=== PATIENT | male | born 1955 | race Asian ===

== ENCOUNTER 2020-08-20 12:39 | Emergency (ER) | payer MEDICAID ==
[~2020-08-20] VITALS: Ht 167.6 cm; Wt 63.5 kg
[2020-08-20 12:40] VITALS: BP_SYST 161
[2020-08-20 13:03] LABS: BASOPHILS % (AUTO) 0.7 % (0.0-2.0); EOSINOPHILS # (AUTO) 0.1 K/uL (0.0-0.4); EOSINOPHILS % (AUTO) 0.9 % (0.0-4.0); HEMATOCRIT 46.4 % (36-54); HEMOGLOBIN 16.1 g/dL (14.0-18.0); LYMPHOCYTES # (AUTO) 1.8 K/uL (1.0-5.5); LYMPHOCYTES % (AUTO) 28.4 % (20.5-51.5); MEAN CORPUSCULAR HEMOGLOBIN 32 pg (27-31); MEAN CORPUSCULAR HGB CONC 35 % (32-36); MEAN CORPUSCULAR VOLUME 92 fL (79.0-98.0); MONOCYTES # (AUTO) 0.3 K/uL (0.0-1.0); MONOCYTES % (AUTO) 4.8 % (1.7-9.3); NEUTROPHILS # (AUTO) 4.1 K/uL (1.8-7.7); NEUTROPHILS % (AUTO) 65.2 % (40.0-70.0); PLATELET COUNT (AUTO) 218 K/uL (130-430); RED BLOOD CELL COUNT(AUTO) 5.06 MIL/uL (4.2-6.2); RED CELL DISTRIBUTION WIDTH 12.7 % (9.0-15.0); WHITE BLOOD COUNT (AUTO) 6.4 K/uL (4.8-10.8)
[2020-08-20 13:08] LABS: BILIRUBIN,URINE NEGATIVE (NEGATIVE); BLOOD, URINE NEGATIVE (NEGATIVE); GLUCOSE,URINE NEGATIVE (NEGATIVE); KETONES,URINE NEGATIVE (NEGATIVE); LEUKOCYTE ESTERASE ,URINE NEGATIVE (NEGATIVE); NITRITE, URINE NEGATIVE (NEGATIVE); PH,URINE 7.5 (5.0-8.0); PROTEIN URINE NEGATIVE (NEGATIVE); UROBILINOGEN,URINE 0.2 (0.2-1.0)
[2020-08-20 13:09] LABS: CLARITY/URINE CLEAR (CLEAR); COLOR,URINE YELLOW (YELLOW)
[2020-08-20 13:15] LABS: ANION GAP 11 (5-15); CHLORIDE 101 mmol/L (98-107); GLUCOSE 105 mg/dL (70-99); POTASSIUM 3.9 mmol/L (3.5-5.1); SODIUM SERUM 141 mmol/L (136-145); UREA NITROGEN, BLOOD 16 mg/dL (8-21)
[2020-08-20 13:20] LABS: BARBITURATE, URINE NEGATIVE (NEG <=200); BENZODIAZEPINE, URINE NEGATIVE (NEG <=150); CANNABINOID, URINE NEGATIVE (NEG <=50); COCAINE, URINE NEGATIVE (NEG <=150); METHAMPHETAMINES SCREEN,URINE NEGATIVE (NEG <=500); OPIATE, URINE NEGATIVE (NEG <=100); PHENCYCLIDINE SCREEN,URINE NEGATIVE (NEG <=25); UR TRICYCLIC ANTIDEPRESSANTS NEGATIVE (NEG <=300); URINE AMPHETAMINE NEGATIVE (NEG <=500); URINE METHADONE NEGATIVE (NEG <=200); URINE OXYCODONE SCREEN NEGATIVE (NEG <=100); URINE PROPOXYPHENE SCREEN NEGATIVE (NEG <=300)
[2020-08-20 13:20] LABS: GFR AFRICAN AMERICAN 109 mL/min (>90)
[2020-08-20 13:30] LABS: ALANINE AMINOTRANSFERASE 19 U/L (12-78); ALBUMIN 4.3 g/dL (3.4-4.8); ASPARTATE AMINOTRANSFERASE 15 U/L (10-37); THYROID STIMULATING HORMONE 1.05 uIu/mL (0.36-3.74); TOTAL BILIRUBIN 0.9 mg/dL (0.0-1.0)
[2020-08-20] MEDS ORDERED: MECL-97 PO (14:29)
[2020-08-20 14:40] VITALS: BP_SYST 149
== END 2020-08-20 14:41 | disposition home or self-care (01) ==
LOC: SED 12:39
DX: R42 Dizziness and giddiness (principal); I10 Essential (primary) hypertension
CPT/HCPCS: 36415; 70450-TC; 76376; 80053; 80307; 81003; 84443-TC; 84484; 85025; 99284

== ENCOUNTER 2021-01-03 18:58 | Emergency (ER) | payer MEDICAID ==
[~2021-01-03] VITALS: Ht 167.6 cm; Wt 63.5 kg
[~2021-01-03 18:58] MED LIST: MECL-103 PO
--- NOTE | 2021-01-03 19:07 | NUR ---
Patient to ER bed 04 to gown for evaluation. Side rails up.
[2021-01-03 19:08] VITALS: BP_SYST 145
--- NOTE | 2021-01-03 19:10 | NUR ---
PATIENT PRESENT TO ED AMBULATORY TO BEDSIDE, ACCOMPANIED BY SISTER AND BROTHER IN LAW COMPLAINING OF PAINLESS SUDDEN ONSET RIGHT EYE LOSS OF VISION STARTING AT 1845. HX OF HTN. DENIES ANY WEAKNESS, NUMBNESS, OR FACIAL DROOP. SPEAKING CLEAR SENTENCES IN MANDARIN. SISTER AT BEDSIDE TRANSLATING. PAIN 0/10. MD NOTIFIED. PER DR. CALLAWAY WILL ASSESS PRIOR TO INITIATING CODE STROKE.
--- NOTE | 2021-01-03 19:17 | NUR ---
CODE STROKE CALLED BY DR. CALLAWAY.
--- NOTE | 2021-01-03 19:18 | NUR ---
PATIENT IS NPO AT THIS TIME.
--- NOTE | 2021-01-03 19:20 | NUR ---
# 20 gauge angiocath placed to RAC AND LAC. Use of asceptic technique. Opsite placed over site. Blood return noted. Blood for lab drawn from site. Flushed with 10 cc of normal saline. No evidence of infiltration noted. Patient tolerated well.
--- NOTE | 2021-01-03 19:27 | NUR ---
DR Anthony MELENDEZ SPEAKING TO DR. ASIM RAE NEUROLOGY FOR TRANSFER
[2021-01-03] MEDS ORDERED: IOHEXOL 350 mgI/mL, 150 ML INFUS..BTL IV ONE (19:31)
--- NOTE | 2021-01-03 19:34 | NUR ---
PATIENT TO CT SCAN FOR CT HEAD ACCOMPANIED BY OBED NOVAK.
--- NOTE | 2021-01-03 19:42 | NUR ---
PATIENT RETURNED FROM CT SCAN IN STABLE CONDITION. PLACED BACK ON CARDIAC MONITORING. VSS.
[2021-01-03] MEDS ORDERED: ALTEPLASE 100 MG VIAL IV ONE ×2 (20:00→20:15)
[2021-01-03 20:05] LABS: BASOPHILS % (AUTO) 0.4 % (0.0-2.0); EOSINOPHILS # (AUTO) 0.1 K/uL (0.0-0.4); HEMATOCRIT 44.2 % (36-54); HEMOGLOBIN 15.4 g/dL (14.0-18.0); LYMPHOCYTES # (AUTO) 1.7 K/uL (1.0-5.5); MEAN CORPUSCULAR HEMOGLOBIN 32 pg (27-31); MEAN CORPUSCULAR HGB CONC 35 % (32-36); MEAN CORPUSCULAR VOLUME 92 fL (79.0-98.0); MONOCYTES # (AUTO) 0.4 K/uL (0.0-1.0); NEUTROPHILS # (AUTO) 5.6 K/uL (1.8-7.7); NEUTROPHILS % (AUTO) 71.6 % (40.0-70.0); PLATELET COUNT (AUTO) 230 K/uL (130-430); RED BLOOD CELL COUNT(AUTO) 4.81 MIL/uL (4.2-6.2); RED CELL DISTRIBUTION WIDTH 12.7 % (9.0-15.0); WHITE BLOOD COUNT (AUTO) 7.8 K/uL (4.8-10.8)
--- NOTE | 2021-01-03 20:08 | NUR ---
DR. CALLAWAY AT BEDSIDE WITH PATIENT, SISTER AND BROTHER IN LAW TO DISCUSS ADMINISTERING TPA TO PATIENT. PATIENT INFORMED OF ALL RISKS OF PROCEDURE UP TO . SISTER TRANSLATING IN MANDARIN AT BEDSIDE. PATIENT AGREES WITH PROCEDURE. ALL QUESTIONS ANSWERED. CONSENT SIGNED BY MD AND PATIENT. WITNESSED BY THIS RN.
[2021-01-03] MEDS ORDERED: ALTEPLASE 100 MG IV ONE (20:11)
[2021-01-03 20:15] LABS: BILIRUBIN,URINE NEGATIVE (NEGATIVE); BLOOD, URINE NEGATIVE (NEGATIVE); CLARITY/URINE CLEAR (CLEAR); COLOR,URINE YELLOW (YELLOW); GLUCOSE,URINE NEGATIVE (NEGATIVE); KETONES,URINE NEGATIVE (NEGATIVE); LEUKOCYTE ESTERASE ,URINE NEGATIVE (NEGATIVE); NITRITE, URINE NEGATIVE (NEGATIVE); PROTEIN URINE NEGATIVE (NEGATIVE); UROBILINOGEN,URINE 0.2 (0.2-1.0)
--- NOTE | 2021-01-03 20:17 | NUR ---
PER DR. CALLAWAY NO AVENDANO NEEDED AT THIS TIME.
--- NOTE | 2021-01-03 20:18 | NUR ---
Medication 2nd checked with OBED Jacinto and OBED Emanuel
--- NOTE | 2021-01-03 20:19 | NUR ---
TPA INITIATED. Pupils equal and reactive to light bilaterally. No facial droop noted. No smile deficit noted. Speech normal for patient. Patient is alert and oriented to person, place, time. Bilateral hand veterinarian epidemiologist equal. Bilateral foot push equal. NO BLEEDING NOTED, GCS-15. DENIES ANY PAIN. VSS
--- NOTE | 2021-01-03 20:20 | NUR ---
Pupils equal and reactive to light bilaterally. No facial droop noted. No smile deficit noted. Speech normal for patient. Patient is alert and oriented to person, place, time. Bilateral hand display decorator equal. Bilateral foot push equal. NO BLEEDING NOTED, GCS-15. DENIES ANY PAIN. VSS
--- NOTE | 2021-01-03 20:25 | NUR ---
Pupils equal and reactive to light bilaterally. No facial droop noted. No smile deficit noted. Speech normal for patient. Patient is alert and oriented to person, place, time. Bilateral hand granulator machine operator equal. Bilateral foot push equal. NO BLEEDING NOTED, GCS-15. DENIES ANY PAIN. VSS
[2021-01-03 20:30] LABS: CREATININE 1.01 mg/dL (0.55-1.30); POTASSIUM 3.7 mmol/L (3.5-5.1)
[2021-01-03 20:30] LABS: BARBITURATE, URINE NEGATIVE (NEG <=200); BENZODIAZEPINE, URINE NEGATIVE (NEG <=150); CANNABINOID, URINE NEGATIVE (NEG <=50); COCAINE, URINE NEGATIVE (NEG <=150); METHAMPHETAMINES SCREEN,URINE NEGATIVE (NEG <=500); OPIATE, URINE NEGATIVE (NEG <=100); PHENCYCLIDINE SCREEN,URINE NEGATIVE (NEG <=25); UR TRICYCLIC ANTIDEPRESSANTS NEGATIVE (NEG <=300); URINE AMPHETAMINE NEGATIVE (NEG <=500); URINE METHADONE NEGATIVE (NEG <=200); URINE OXYCODONE SCREEN NEGATIVE (NEG <=100); URINE PROPOXYPHENE SCREEN NEGATIVE (NEG <=300)
--- NOTE | 2021-01-03 20:30 | NUR ---
Pupils equal and reactive to light bilaterally. No facial droop noted. No smile deficit noted. Speech normal for patient. Patient is alert and oriented to person, place, time. Bilateral hand medical authorization specialist equal. Bilateral foot push equal. NO BLEEDING NOTED, GCS-15. DENIES ANY PAIN. VSS
--- NOTE | 2021-01-03 20:35 | NUR ---
Pupils equal and reactive to light bilaterally. No facial droop noted. No smile deficit noted. Speech normal for patient. Patient is alert and oriented to person, place, time. Bilateral hand tourist agent equal. Bilateral foot push equal. NO BLEEDING NOTED, GCS-15. DENIES ANY PAIN. VSS
[2021-01-03 20:36] LABS: ALBUMIN 4.2 g/dL (3.4-4.8); TOTAL BILIRUBIN 0.4 mg/dL (0.0-1.0)
--- NOTE | 2021-01-03 20:38 | NUR ---
PT TAKES HTN MEDICATION, UNAWARE OF NAME AND DOSAGE.
--- NOTE | 2021-01-03 20:40 | NUR ---
Pupils equal and reactive to light bilaterally. No facial droop noted. No smile deficit noted. Speech normal for patient. Patient is alert and oriented to person, place, time. Bilateral hand transmission line engineer equal. Bilateral foot push equal. NO BLEEDING NOTED, GCS-15. DENIES ANY PAIN. VSS
--- NOTE | 2021-01-03 20:45 | NUR ---
Pupils equal and reactive to light bilaterally. No facial droop noted. No smile deficit noted. Speech normal for patient. Patient is alert and oriented to person, place, time. Bilateral hand testing lead equal. Bilateral foot push equal. PATIENT'S SISTER AT BEDSIDE. DENIES ANY PAIN. GCS 15. NO BLEEDING AT THIS TIME. VSS.
--- NOTE | 2021-01-03 20:50 | NUR ---
Pupils equal and reactive to light bilaterally. No facial droop noted. No smile deficit noted. Speech normal for patient. Patient is alert and oriented to person, place, time. Bilateral hand air conditioning sheet metal installer equal. Bilateral foot push equal. PATIENT'S SISTER AT BEDSIDE. DENIES ANY PAIN. GCS 15. NO BLEEDING AT THIS TIME. VSS.
--- NOTE | 2021-01-03 20:55 | NUR ---
Pupils equal and reactive to light bilaterally. No facial droop noted. No smile deficit noted. Speech normal for patient. Patient is alert and oriented to person, place, time. Bilateral hand c software developer equal. Bilateral foot push equal. DENIES ANY PAIN. GCS 15. NO BLEEDING AT THIS TIME. VSS.
--- NOTE | 2021-01-03 21:00 | NUR ---
Pupils equal and reactive to light bilaterally. No facial droop noted. No smile deficit noted. Speech normal for patient. Patient is alert and oriented to person, place, time. Bilateral hand data services developer equal. Bilateral foot push equal. PATIENT'S SISTER AT BEDSIDE. DENIES ANY PAIN. GCS 15. NO BLEEDING AT THIS TIME. VSS.
--- NOTE | 2021-01-03 21:05 | NUR ---
Pupils equal and reactive to light bilaterally. No facial droop noted. No smile deficit noted. Speech normal for patient. Patient is alert and oriented to person, place, time. Bilateral hand director pediatric equal. Bilateral foot push equal. PATIENT'S SISTER AT BEDSIDE. DENIES ANY PAIN. GCS 15. NO BLEEDING AT THIS TIME. VSS.
--- NOTE | 2021-01-03 21:10 | NUR ---
Pupils equal and reactive to light bilaterally. No facial droop noted. No smile deficit noted. Speech normal for patient. Patient is alert and oriented to person, place, time. Bilateral hand packager or packer and weigher equal. Bilateral foot push equal. PATIENT'S SISTER AT BEDSIDE. DENIES ANY PAIN. GCS 15. NO BLEEDING AT THIS TIME. VSS.
--- NOTE | 2021-01-03 21:15 | NUR ---
Pupils equal and reactive to light bilaterally. No facial droop noted. No smile deficit noted. Speech normal for patient. Patient is alert and oriented to person, place, time. Bilateral hand traffic workforce representative equal. Bilateral foot push equal. PATIENT'S SISTER AT BEDSIDE. DENIES ANY PAIN. GCS 15. NO BLEEDING AT THIS TIME. VSS.
--- NOTE | 2021-01-03 21:20 | NUR ---
Pupils equal and reactive to light bilaterally. No facial droop noted. No smile deficit noted. Speech normal for patient. Patient is alert and oriented to person, place, time. Bilateral hand public welfare director equal. Bilateral foot push equal. PATIENT'S SISTER AT BEDSIDE. DENIES ANY PAIN. GCS 15. NO BLEEDING AT THIS TIME. VSS.
--- NOTE | 2021-01-03 21:35 | NUR ---
Pupils equal and reactive to light bilaterally. No facial droop noted. No smile deficit noted. Speech normal for patient. Patient is alert and oriented to person, place, time. Bilateral hand behavioral health professional equal. Bilateral foot push equal. PATIENT'S SISTER AT BEDSIDE. DENIES ANY PAIN. GCS 15. NO BLEEDING AT THIS TIME. VSS. NO ADVERSE REACTION FROM DRUG THERAPY
--- NOTE | 2021-01-03 21:50 | NUR ---
Pupils equal and reactive to light bilaterally. No facial droop noted. No smile deficit noted. Speech normal for patient. Patient is alert and oriented to person, place, time. Bilateral hand medical assistant instructor equal. Bilateral foot push equal. PATIENT'S SISTER AT BEDSIDE. DENIES ANY PAIN. GCS 15. NO BLEEDING AT THIS TIME. VSS. NO ADVERSE REACTION FROM DRUG THERAPY
[2021-01-03 21:55] LABS: INR 0.9 (0.80-1.20); PROTHROMBIN TIME 9.6 SECS (9.5-12.5)
--- NOTE | 2021-01-03 22:05 | NUR ---
Pupils equal and reactive to light bilaterally. No facial droop noted. No smile deficit noted. Speech normal for patient. Patient is alert and oriented to person, place, time. Bilateral hand hot billet shear operator equal. Bilateral foot push equal. PATIENT'S SISTER AT BEDSIDE. DENIES ANY PAIN. GCS 15. NO BLEEDING AT THIS TIME. VSS. NO ADVERSE REACTION FROM DRUG THERAPY
--- NOTE | 2021-01-03 22:20 | NUR ---
Pupils equal and reactive to light bilaterally. No facial droop noted. No smile deficit noted. Speech normal for patient. Patient is alert and oriented to person, place, time. Bilateral hand pilot boat deckhand equal. Bilateral foot push equal. PATIENT'S SISTER AND Brother in law AT BEDSIDE. DENIES ANY PAIN. GCS 15. NO BLEEDING AT THIS TIME. VSS. NO ADVERSE REACTION FROM DRUG THERAPY
--- NOTE | 2021-01-03 22:32 | NUR ---
Patient updated on plan of care. VSS. Patient awaiting transport.
--- NOTE | 2021-01-03 22:35 | NUR ---
DENIES ANY PAIN. GCS 15. NO BLEEDING AT THIS TIME. VSS. NO ADVERSE REACTION FROM DRUG THERAPY. NO CHANGE IN CONDITION AT THIS TIME. WILL CONTINUE TO CLOSELY MONITOR PATIENT.
--- NOTE | 2021-01-03 22:53 | NUR ---
Patient to be transferred to [facility]. Is being transferred due to higher level of care. Receiving facility has accepting physician and available space. ER physician has signed transfer form. Patient or responsible alliance party has agreed to transfer and signed form. Patient belongings inventoried and will be sent with patient. Copy of nursing notes, lab reports, EKG, Physicians Orders and X-rays to be sent with patient. Report WILL BE GIVEN TO [facility] AT TIME OF ARRIVAL Receiving physician is DR CORTES. [facility] ambulance service has been called for transfer. ETA is [phone]
[2021-01-03 23:24] VITALS: BP_SYST 142
--- NOTE | 2021-01-03 23:24 | NUR ---
[facility] ARRIVED WITH RAVINDRA CLAY, REPORT GIVEN. VSS. PT TRANSFERED AT THIS TIME TO [facility]
== END 2021-01-03 23:24 | disposition short-term general hospital (02) ==
LOC: SED 18:58
DX: I63.9 Cerebral infarction, unspecified (principal); H34.11 Central retinal artery occlusion, right eye; I10 Essential (primary) hypertension; Z79.899 Other long term (current) drug therapy
CPT/HCPCS: 36415; 37195; 70450; 71045; 76376; 80053; 80307; 81003; 84484; 85025; 85610; 85730; 86886; 86900; 86901; 99291; J2997; Q9967